=== PATIENT | female | born 1955 | race Caucasian/White ===

== ENCOUNTER 2016-11-21 12:43 | Outpatient (CLI) | payer OTHER ==
[~2016-11-21 12:43] MED LIST: ATIVAN1 MG PO; CLONAZEPAM0.5 MG PO; DEPAKOTE250 MG PO; KEPPRA500 MG PO; MAGNESIUM; PROAIR HFA IN; QVAR40 MCG IN; SERTRALINE HCL50 MG PO; TOPIRAMATE100 MG PO; VITAMIN B12500 MCG; VITAMIN C500 M1 PO; VITAMIN D-31000 UNIT PO
--- NOTE | 2016-11-21 13:40 | DIAGNOSTIC IMAGING REPORT ---
PROCEDURE: MG BILATERAL SCREENING W/CAD INDICATION: SCREENING TECHNIQUE: Bilateral CC and MLO digital views. COMPARISON: Compared to 05/25/2015, 03/10/2013, and 06/22/2011. FINDINGS: Computer-aided detection applied. Dense parenchymal pattern. No change. IMPRESSION: 1. Negative mammogram. RESULT CODE: 1- Negative. A. A negative report should not delay biopsy if a dominant or clinically suspicious mass is present. 10-15% of cancers are not identified by x-ray. B. A negative report may reinforce clinical impression. C. Adenosis and dense breasts may obscure an underlying neoplasm. D. False positive reports average 6-10%. E.. A yearly screening mammogram is recommended. A reminder letter will be scheduled.
== END 2016-11-21 23:00 ==
LOC: MAM SRH 12:43
DX: Z12.31 Encounter for screening mammogram for malignant neoplasm of breast (principal)